=== PATIENT | female | born 1965 | race Caucasian/White ===

== ENCOUNTER 2019-03-10 08:14 | Emergency (ER) | payer OTHER ==
--- OUTSIDE RECORDS SUMMARY | 2019-03-10 08:35 | XMS REPORT | Continuity of Care Document ---
:1965 External Reference #:[id number] Author Name Ira Eli M.D. Address [address] [facility] [address] [place] [address] Problems Description No Information Available Social History Type Date Description Comments Sex Unknown ETOH Use Rarely consumes alcohol Tobacco Use Start: Unknown Patient has never smoked Allergies, Adverse Reactions, Alerts Description No Known Drug Allergies Medications Active Medications SIG Qnty Indications Ordering Date Provider Ciprofloxacin HCL 1 by mouth twice a 20tabs N39.0 Ira Eli, 2018 500mg day M.D. Tablets Hydrocodone-Acetamino 1 tab by mouth 30tabs R10.32 Ira Eli, 2018 phen three times a day M.D. 5-325mg Tablets as needed Ibuprofen 1 by mouth three 90tabs R10.32 Ira Eli, 03/09/2019 800mg Tablets times a day as M.D. needed Silenor 1 tab by mouth at 90tabs G47.00 Ira Eli, 03/04/2018 3mg Tablets bedtime. do eat M.D. within 3 hours of taking medication Latisse 1 GTT QHS To Eye 3ml L63.1 Ira Eli, 03/04/2018 0.03% Solution Claribel Marte Levothyroxine Sodium 1 by mouth every 90tabs E03.9 Ira Eli, 2017 day M.D. 25mcg Tablets Montelukast Sodium 1 by mouth every 90tabs J30.9 Ira Eli, 2017 10mg day M.D. Tablets Claritin 1 by mouth every 30tabs J30.9 Iar Eli, 01/28/2018 10mg Tablets day M.D. Prednisolone Acetate 1 drops both eyes 10ml H10.45 Sreedhar Asherandrea Ibrahim, 2017 1% twice a day as M.D. 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 11/11/2006 Injection Immunizations Description No Information Available Vital Signs Date Vital Result Comment 03/09/2019 4:55pm BP Systolic 128 mmHg BP Diastolic 66 mmHg Height 65 inches 5'5" Weight 138.00 lb BMI (Body Mass Index) 23.0 kg/m2 Heart Rate 63 /min Respiratory Rate 16 /min 09/16/2018 9:38am BP Systolic 132 mmHg BP Diastolic 64 mmHg Height 65 inches 5'5" Weight 131.00 lb BMI (Body Mass Index) 21.8 kg/m2 Heart Rate 84 /min Respiratory Rate 16 /min Results Test Acquired Date Facility Test Result H/L Range Note CBC With Diff 09/16/2018 [facility] WBC 4.8 10*3/uL (4.1-11.0) [facility] ([facility])- - RBC 4.79 10*6/uL (4.00-5.40) HGB 14.5 g/dL (12.0-16.0) HCT 42.2 % (36.0-47.0) MCV 88.1 fL (80.0-95.0) MCH 30.2 pg (27.0-32.0) MCHC 34.3 g/dL (32.0-36.0) RDW 13.6 % (10.5-14.5) PLT 219 10*3/uL (150-450) MPV 8.9 fL (7.1-10.7) Neut % 53.1 % (35.0-75.0) Lymph % 37.5 % (16.0-52.0) Sterling % 7.4 % (0.0-8.0) Eos % 1.6 % (0.0-5.0) Baso % 0.4 % (0.0-4.0) Neut # 2.5 10*3/uL (1.8-7.7) Lymph # 1.8 10*3/uL (1.2-4.8) Sterling # 0.4 10*3/uL (0.0-0.8) Eos # 0.1 10*3/uL (0.0-0.5) Baso # 0.0 10*3/uL (0.0-0.2) CMP 09/16/2018 [facility] Sodium 138 mmol/L (136-145) [facility] (607)- - Potassium 4.2 mmol/L (3.6-5.2) Chloride 104 mmol/L (100-108) Co2 28 mmol/L (22-31) Anion Gap 6 mmol/L Low (7-16) Urea Nitrogen 13 mg/dL (7-24) Creatinine 0.72 mg/dL (0.60-1.00) BUN/Creat Ratio 18.1 RATIO (10.0-20.0) Glucose 63 mg/dL Low (70-99) Calcium 8.9 mg/dL (8.4-10.2) Total Protein 7.1 g/dL (6.4-8.2) Albumin 4.0 g/dL (3.5-4.6) Globulin 3.1 g/dL (2.7-4.3) Alb/Glob Ratio 1.3 RATIO Alkaline Phosphatase 42 U/L Low (45-117) Bilirubin,Total 0.5 mg/dL (0.0-1.0) Ast (Sgot) 17 U/L (11-39) Alt (SGPT) 31 U/L (12-78) GFR >60 ml/min/1.73m2 (>59) GFR ( Amer) >60 ml/min/1.73m2 (>59) GFR Interpretation <SEE NOTE> 1 Laboratory test 09/16/2018 [facility] Thyroxine 0.92 ng/dL (0.76- 1.46) finding [address] [facility] @ (607)- - TSH,Ultrasensitive @ 3.860 mIU/L (0.360-4.170) Lipid Extended Panel 09/16/2018 [facility] Appearance CLEAR (Clear) [address] [facility] (607)- - Cholesterol @ 196 mg/dL (0-200) Triglyceride @ 68 mg/dL (30-200) HDL Cholesterol @ 72 mg/dL (>40) 2 Chol/HDL Ratio 2.7 RATIO 3 Direct LDL @ 120 mg/dL (<130) 4 VLDL (Calc) 4 mg/dL (0-30) Laboratory test 09/16/2018 [facility] Rheumatoid Factor <15 IU/mL (0- 15) finding [facility] (607)- - Esr 3 mm/h (0-30) C Reactive Protein @ <0.3 mg/dL (0.0-0.5) Uric Acid 3.5 mg/dL (2.6-6.0) 25 Hydroxy Vit D @ 30 ng/mL Low (31-100) 5 1 NORMAL KIDNEY FUNCTION OR MILD DISEASE - GFR >OR= 60 CHRONIC KIDNEY DISEASE - GFR 15 - 59 RENAL FAILURE - GFR <15 Est. GFR calculation based on the MDRD study equation, which assumes a steady state for creatinine. Est. GFR should not be used for medication dosing. 2 PER NCEP ATP III GUIDELINES: RESULTS LOWER THAN 40 MG/DL ARE SUGGESTIVE OF INCREASED RISK FOR CORONARY ARTERY DISEASE. RESULTS > OR = TO 60 MG/DL ARE CONSIDERED A NEGATIVE RISK FACTOR. 3 INTERPRETATION OF CHOL-HDL RATIO CHD RISK FEMALE MALE VERY HIGH >8.3 >14.3 HIGH 5.6- 8.3 6.7- 14.3 AVERAGE 3.7- 5.6 4.0- 6.7 BELOW AVERAGE 2.5- 3.7 2.7- 4.0 PROTECTED <2.5 <2.7 4 PER NCEP ATP III GUIDELINES: OPTIMAL < 100 NEAR OPTIMAL 100 - 129 BORDERLINE HIGH 130 - 159 HIGH 160 - 189 VERY HIGH > 189 5 A REVIEW OF THE LITERATURE SUGGESTS THE FOLLOWING RANGES FOR THE CLASSIFICATION OF 25-OH VITAMIN D STATUS: VITAMIN D STATUS 25-OH VITAMIN D DEFICIENCY <20 NG/ML INSUFFICIENCY 20-30 NG/ML SUFFICIENCY 31 - 100 NG/ML TOXICITY > 100 NG/ML A PEDIATRIC REFERENCE RANGE HAS NOT BEEN ESTABLISHED USING THIS METHOD. Procedures Date Code Description Status 04/20/2015 [id number] Colonoscopy Completed 04/20/2014 [id number] Mammogram Completed Medical Devices Description No Information Available Encounters Type Date Location Provider Dx Diagnosis Office Visit 03/09/2019 Ira Shore, E03.9 Hypothyroidism, 4:45p M.D. 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 unspecified E78.2 Mixed hyperlipidemia L20.9 Atopic dermatitis, unspecified J30.9 Allergic rhinitis, unspecified M15.9 Polyosteoarthritis, unspecified M71.30 Other bursal cyst, unspecified site K21.9 Gastro-esophageal reflux disease without esophagitis F41.9 Anxiety disorder, unspecified R10.84 Generalized abdominal pain G47.00 Insomnia, unspecified N95.8 Other specified menopausal and perimenopausal disorders H10.45 Other chronic allergic conjunctivitis H04.123 Dry eye syndrome of bilateral lacrimal glands E55.9 Vitamin D deficiency, unspecified M54.5 Low back pain N39.0 Urinary tract infection, site not specified 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 03/09/2019 E78.2 Mixed hyperlipidemia SreedharIra manning M.D. 03/09/2019 L20.9 Atopic dermatitis, unspecified Ira Eli M.D. 03/09/2019 J30.9 Allergic rhinitis, unspecified Ira Eli M.D. 03/09/2019 M15.9 Polyosteoarthritis, unspecified Ira Eli M.D. 03/09/2019 M71.30 Other bursal cyst, unspecified site Ira Eli M.D. 03/09/2019 K21.9 Gastro-esophageal reflux disease without SreedharIra manning M.D. esophagitis 03/09/2019 F41.9 Anxiety disorder, unspecified Ira Eli M.D. 03/09/2019 R10.84 Generalized abdominal pain Ira Eli M.D. 03/09/2019 G47.00 Insomnia, unspecified Ira Eli M.D. 03/09/2019 N95.8 Other specified menopausal and SreedharIra M.D. perimenopausal disorders 03/09/2019 H10.45 Other chronic allergic conjunctivitis Ira Eli M.D. 03/09/2019 H04.123 Dry eye syndrome of bilateral lacrimal Ira Eli M.D. glands 03/09/2019 E55.9 Vitamin D deficiency, unspecified Ira Eli M.D. 03/09/2019 M54.5 Low back pain Ira Eli M.D. 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 03/09/2019 N95.1 Menopausal and female climacteric states Ira Eli M.D. 03/09/2019 N39.0 Urinary tract infection, site not specified Ira Eli M.D. 03/09/2019 R10.32 Left lower quadrant pain Ira Eli M.D. 09/16/2018 E03.9 Hypothyroidism, unspecified Angel Lee, N.P. 09/16/2018 E78.2 Mixed hyperlipidemia Angel Lee, N.P. 09/16/2018 L20.9 Atopic dermatitis, unspecified Angel Lee, N.P. 09/16/2018 J30.9 Allergic rhinitis, unspecified Angel Lee, N.P. 09/16/2018 M15.9 Polyosteoarthritis, unspecified Angel Lee, N.P. 09/16/2018 M71.30 Other bursal cyst, unspecified site Angel Lee N.P. 09/16/2018 K21.9 Gastro-esophageal reflux disease without Angel Lee, N.P. esophagitis 09/16/2018 F41.9 Anxiety disorder, unspecified Angel Lee, N.P. 09/16/2018 R10.84 Generalized abdominal pain Angel Lee, N.P. 09/16/2018 G47.00 Insomnia, unspecified Angel Lee, N.P. 09/16/2018 N95.8 Other specified menopausal and Angel Lee, N.P. perimenopausal disorders 09/16/2018 H10.45 Other chronic allergic conjunctivitis Angel Lee, N.P. 09/16/2018 H04.123 Dry eye syndrome of bilateral lacrimal Angel Lee, N.P. glands 09/16/2018 E55.9 Vitamin D deficiency, unspecified Angel Lee, N.P. 09/16/2018 M54.5 Low back pain Angel Lee N.P. 09/16/2018 N39.0 Urinary tract infection, site not specified Angel Lee, N.P. 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 09/16/2018 N95.1 Menopausal and female climacteric states Angel Lee, N.P. 09/16/2018 B35.4 Tinea corporis Angel Lee, N.P. 09/16/2018 K59.00 Constipation, unspecified Angel Lee NNico. 09/16/2018 R53.83 Other fatigue Angel Lee N.P. Plan of Treatment 03/09/2019 - Ira Eli M.D.E03.9 Hypothyroidism, unspecifiedComments: STABLE OFF RX F/U TSH/ FT4E78.2 Mixed hyperlipidemiaComments:DIET REVIEWED CONTINUE DIETWT LOSSF/U LAB FBWL20.9 Atopic dermatitis, unspecifiedComments: SKIN CARE INSTRUCTIONS LOTION OR BABY OIL 2-3 APPLICATION PER DAYUSE MOISTURIZING SOAPAVOID PROLONGED WATER EXPOSUREAVOID USING HOT WATER IN EITTYBC49.9 Allergic rhinitis, unspecifiedComments:INCREASE PO FLUID USE ANTIHISTAMINE PRN SECOND HAND SMOKING PBUOEYUBUE96.9 Polyosteoarthritis, unspecifiedComments:EXERCISE/HEAT/MESSAGETYLENOL OR MOTRIN PRNAVOID HEAVY LIFTINGWT LOSSM71.30 Other bursal cyst, unspecified siteK21.9 Gastro-esophageal reflux disease without esophagitisComments:AVOID CAFFEINE, ETOH AND SPICY FOODSTUMS OR MYLANTA PRN CALL WITH PROBLEMS OR OLCBPESWL01.9 Anxiety disorder, unspecifiedComments:COUNCELLING AND REASSURANCE RELAXATION TECHNIQUES DISCUSSEDCOUNSELED RE: STRESSORS IN LIFE AVOID ALLENERGY/HIGH CAFFEINE CYMRQJJ50.84 Generalized abdominal painComments:TYLENOL OR MOTRIN PRNINCREASE PO FLUIDLAXATIVE PRN F/U DIRECTEDF/U OAVGGSKGR20.00 Insomnia, unspecifiedComments:COUNCELLING AND REASSURANCE RELAXATION TECHNIQUES DISCUSSED COUNSELED RE: STRESSORS IN LIFE TYLENOLPM OR MOTRIN PM PRNN95.8 Other specified menopausal and perimenopausal disordersComments:STABLE/OBSERVE STRESS EXERCISESCALCIUM SUPPLEMENT VIT D SUPPLEMENTHEALTHY LIVING GMBYJHLFRLDU56.45 Other chronic allergic conjunctivitisComments:EYE CARE XUMWKVYKIWEYL03.123 Dry eye syndrome of bilateral lacrimal glandsComments:F/U WITH OPHTHALMOLOGYEYE CARE WQWLCMPSZXBUE34.9 Vitamin D deficiency, unspecifiedComments:INCREASE EXPOSURE TO SUNREVIEW OF DIETM54.5 Low back painComments:OSXTUXAAX07.1 Alopecia universalisComments:SKIN AND HAIR CARE GQJVKSMTVQAHH17.1 Menopausal and female climacteric statesComments:COUNCELLING AND REASSURANCECALCIUM OEHJDVVJVP63.0 Urinary tract infection, site not specifiedNew Medication:Ciprofloxacin HCL 500 mg - 1 by mouth twice a dayComments:INCREASE PO FLUIDREVIEWED PREVENTIVE ILHAKLTKK75.32 Left lower quadrant painNew Medication:Hydrocodone-Acetaminophen 5-325 mg - 1 tab by mouth three times a day as neededIbuprofen 800 mg - 1 by mouth three times a day as neededNew Xrays:Ultrasound, Renal, Ordered: Comments:TYLENOL OR MOTRIN PRNINCREASE PO FLUIDF/U DIRECTED Functional Status Description No Information Available Mental Status Description No Information Available Referrals Description No Information Available
[2019-03-10 08:42] VITALS: BP 117/70
--- NOTE | 2019-03-10 09:26 | UC ---
Complaint Female HPI - HPI Summary HPI Summary: 53 you woman with past hysterectomy and previous renal stone, with a one month history of low back pain. For the past week, she has had episodes of sharp shooting pains in the LLQ, without changes in urination. No hx of ovarian cysts. Pain can waken her from sleep. Stools have been normal. No changes in appetite. - History Of Current Complaint Chief Complaint: UCBackPain Stated Complaint: PAIN IN LOWER LEFT SIDE(FRONT&BACK) Time Seen by Provider: 03/10/19 09:15 Hx Obtained From: Patient Hx Last Menstrual Period: 05/01/14 Onset/Duration: Gradual Onset, Lasting Weeks Timing: Intermittent Severity Initially: Mild Severity Currently: Moderate Pain Intensity: 4 Character: Sharp - at times in LLQ, Burning - sensation across low back Alleviating Factor(s): Meds - ibuprofen 800mg gave relief. - Allergies/Home Medications Allergies/Adverse Reactions: Allergies Allergy/AdvReac Type Severity Reaction Status Date / Time No Known Allergies Allergy Verified 03/10/19 08:42 PMH/Surg Hx/FS Hx/Imm Hx Previously Healthy: Yes GI/ History: Other - hysterectomy for fibroid uterus - Surgical History Surgical History: Yes Surgery Procedure, Year, and Place: lymphnode from neck--benign - Family History Known Family History: Positive: Non-Contributory - Social History Lives: With Family Alcohol Use: Rare Substance Use Type: None Smoking Status (MU): Never Smoked Tobacco Review of Systems All Other Systems Reviewed And Are Negative: Yes Constitutional: Positive: Negative Skin: Positive: Negative Eyes: Positive: Negative ENT: Positive: Negative Respiratory: Positive: Negative Cardiovascular: Positive: Negative Gastrointestinal: Positive: Negative Genitourinary: Positive: Hematuria - microhematuria yesterday. Negative: Dysuria Motor: Positive: Negative Neurovascular: Positive: Negative Musculoskeletal: Positive: Negative Neurological: Positive: Negative Psychological: Positive: Negative Is Patient Immunocompromised?: No Physical Exam Triage Information Reviewed: Yes Appearance: Well-Appearing, Pain Distress - mild to moderate Vital Signs: Initial Vital Signs Temp 98.9 F 03/10/19 08:37 Pulse 72 03/10/19 08:37 Resp 18 03/10/19 08:37 BP 117/70 03/10/19 08:37 Pulse Ox 100 03/10/19 08:37 Eye Exam: Normal ENT: Positive: Pharynx normal Neck: Positive: Supple, Nontender, No Lymphadenopathy Respiratory: Positive: Lungs clear, Normal breath sounds Cardiovascular: Positive: RRR, No Murmur Abdomen Description: Positive: Soft, Guarding - tenderness left lateral abdomen without rebound. Has fullness in the left lateral mid abdomen. Bimanual without ovarian tenderness or appreciation of mass.. Negative: CVA Tenderness ( R), CVA Tenderness (L), Hepatomegaly Pelvic Exam: Positive: External Exam Normal, Bimanual Exam Normal Diagnostics - Laboratory Lab Results: UA with trace rbc's. - Radiology No standard instances Radiology Interpretation Completed By: Radiologist - Patient Name: ELIAZAR ENRIQUEZ Medical Record#: [id number] Ordering Physician: Ryanne Rodriguez MD Acct.#: [id number] : 1965 Age: 53 Sex: F Location: [facility] Exam Date: 03/10/19932 ADM Status: [facility] ER Order Information: US RENAL COMPLETE Accession Number: [id number] CPT: 09993 Indication: Renal calculi. Real-time sonography of the kidneys was performed. The right kidney measures 10.7 x 4.1 x 5.7 cm. No hydronephrosis is noted. The left kidney measures 9.9 x 5.9 x 4.6 cm. No hydronephrosis is noted. IMPRESSION: Unremarkable renal ultrasound <Electronically signed by Madisyn Bean MD in OV> 1007 Dictated By: Madisyn Bean MD Dictated Date/Time: 03/10/19 1006 Transcribed Date/Time: 03/10/19 1006 Copy to: CC:Ira Eli MD; Ryanne Rodriguez MD Imaging - [facility] Imaging - [facility] Urgent [facility] [address] [place] [address] ph ([phone]) ph ([phone]) ph ([phone]) This report is only to be considered final once signed by the Provider(s) as displayed in the "<Electronically Signed by >" field (s). Absence of a signature indicates the report is in a draft status and still needs to be finalized. In the event this document was created by someone other than the signing Provider, the individual initiating the document will be listed in the "Entered by:" or "Dictated by:" nick. 1 of 1 Complaint Female Dx - Course Course Of Treatment: Discussed that she does not have obstructive uropathy, but could have non- obstructing stones. Follow up with PMD to continue work up of episodic left lower quadrant pain. - Differential Dx/Diagnosis Differential Diagnosis/HQI/PQRI: Ovarian Cyst, Ovarian Torsion, Renal Colic, Urinary Tract Infection Provider Diagnosis: Left lateral abdominal pain Discharge ED - Sign-Out/Discharge Documenting (check all that apply): Patient Departure All imaging exams completed and their final reports reviewed: Yes - Discharge Plan Condition: Stable Disposition: HOME Patient Education Materials: Abdominal Pain (ED) Referrals: Ira Eli MD [Primary Care Provider] - Additional Instructions: Please continue ibuprofen 800mg 2 or 3 times daily for pain. Urine culture is pending. As reviewed, you will defer treatment with antibiotics. Follow up with Dr. Eli to discuss: ~referral to evaluate blood in urine. ~ further work up of pain in the left side. - Billing Disposition and Condition Condition: STABLE Disposition: Home
== END 2019-03-10 10:45 | disposition home or self-care (01) ==
LOC: UCCORT 08:14
DX: R10.32 Left lower quadrant pain (principal); M54.5 Low back pain; Z90.710 Acquired absence of both cervix and uterus
CPT/HCPCS: 76775; 81003; 87086; 99211; G0463